=== PATIENT | male | born 1935 | race African-American/Black ===

== ENCOUNTER 2019-02-20 07:57 | Emergency (ER) | payer MEDICARE, OTHER ==
[~2019-02-20] VITALS: Ht 188 cm; Wt 82.0 kg
[2019-02-20] MEDS ORDERED: ACETAMINOPHEN 325MG TABLET PO ONE (08:30)
[2019-02-20 09:47] LABS: BASOPHILS % 0.8 % (0.0-2.0); EOSINOPHILS % 0.1 % (0.0-5.0); HEMATOCRIT. 43.4 % (42.0-52.0); HEMOGLOBIN. 14.2 g/dL (14.0-18.0); LYMPHOCYTES % 16.1 % (20.0-50.0); MEAN CORPUSCULAR HEMOGLOBIN 27.9 pg (28.0-32.0); MEAN CORPUSCULAR VOLUME 85.2 fL (80.0-94.0); MEAN PLATELET VOLUME 8.5 fl (7.4-10.4); MONOCYTES % 13.9 % (2.0-8.0); NEUTROPHILS % 69.1 % (40.0-76.0); PLATELET 208 x1000/uL (130-400)
[2019-02-20 09:53] LABS: CHLORIDE 109 mEq/L (98-107)
[2019-02-20 09:54] LABS: PROTHROMBIN TIME 10.7 sec (9.6-11.0)
[2019-02-20 10:59] VITALS: BP 170/70
[2019-02-20 11:13] LABS: CLARITY URINE CLOUDY (CLEAR); COLOR URINE YELLOW (YELLOW); KETONES URINE NEGATIVE (NEGATIVE); LEUKOCYTE ESTERASE URINE 2+ (NEGATIVE); NITRITE URINE NEGATIVE (NEGATIVE); OCCULT BLOOD URINE 3+ (NEGATIVE); PH URINE 5.5 (4.5-8.0); PROTEIN URINE 2+ (NEGATIVE); SPECIFIC GRAVITY URINE 1.016 (1.005-1.030)
== END 2019-02-20 11:18 | disposition home or self-care (01) ==
LOC: ER 08:11
DX: M79.18 Myalgia, other site (principal); I10 Essential (primary) hypertension; F03.90 Unspecified dementia, unspecified severity, without behavioral disturbance, psychotic disturbance, mood disturbance, and anxiety; Z89.512 Acquired absence of left leg below knee; E86.0 Dehydration
CPT/HCPCS: 36415; 72170; 81003; 87077; 87186; 99284